=== PATIENT | female | born 1970 | race Caucasian/White ===

== ENCOUNTER 2024-10-09 20:36 | Emergency (ER) | payer BC, SELFPAY ==
[2024-10-09 20:39] VITALS: BP 133/82; PULSE 93; RESP 17; TEMP 37.3; O2SAT 100
[2024-10-09 20:45] VITALS: BP 133/82; PULSE 93; RESP 17; TEMP 37.3; O2SAT 100
--- NOTE | 2024-10-09 21:00 | ED.GENADUL_ITS ---
Discharge Plan Disposition Patient Disposition: Home Condition: Stable Discharge Details Clinical Impression: Cellulitis ED Provider: Emily Burgess Home Meds and New Rx's Prescriptions: New cephalexin 500 mg capsule 500 mg PO QID 7 Days Qty: 28 0RF Discharge Instructions Instructions: Cellulitis (Skin Infection), Adult ED Additional Instructions: Take antibiotics as prescribed. If you have increasing redness, pain, fevers please return for reevaluation. Call your surgeon to discuss symptoms and findings today. Discharge Data Discharge Physician: Emily Burgess [facility] General Date/Time Provider Initiated Documentation: 10/09/24 20:40 . HPI Narrative: 54-year-old female presents for evaluation of pain and swelling to right axilla. She had surgery last week to remove breast tissue from her axilla. She had been doing yard work today. This evening she noticed some pain and swelling to her right axilla. She has some nausea and chills. There is no drainage from the area. Surgical incision is intact. No history of skin infections or MRSA. She is not on any antibiotics. No nausea or vomiting. Related Data Home Medications ?Medication ?Instructions ?Recorded ?Confirmed cephalexin 500 mg capsule 500 mg PO QID 7 days #28 cap s 10/09/24 Previous Rx's ?Medication ?Instructions ?Recorded cephalexin 500 mg capsule 500 mg PO QID 7 days #28 cap s 10/09/24 Allergies Allergy/AdvReac Type Severity Reaction Status Date / Time No Known Allergies Allergy Verified 10/09/24 20:44 General Stated Complaint: Cellulitis DERECK: 3 Review of Systems Narrative: Remainder of review of systems otherwise negative except for as noted in the HPI x 10. Exam Narrative Exam Narrative: General: non-toxic, no respiratory distress, comfortable HEENT: normocephalic, atraumatic, lids and lashes normal, PERRL, EOMI, anicteric sclera, no conjunctival injection, moist oral mucosa Card: regular rate and rhythm, S1S2, no murmurs, rubs, or gallops Lungs: good air entry, clear to auscultation bilaterally. no wheezes, rales, rho nchi, or retractions Abd: soft, non-tender, non-distended, normal bowel sounds, no rebound or guarding, no peritoneal signs Musculoskeletal: full range of motion of arms and legs, no tenderness to pal pation. no clubbing, cyanosis, or edema Neurologic: appropriate for age, strength normal Psych: alert and oriented Skin: Surgical incision to right axilla clean dry and intact, significant erythema, warmth, swelling just below surgical incision in right axilla, otherwise no petechiae, no lesions, warm and dry Course Vital Signs Vital signs: Vital Signs Temperature 37.3 C 10/09/24 20:39 Pulse 93 H 10/09/24 20:39 Respiratory Rate 17 10/09/24 20:39 Blood Pressure 133/82 10/09/24 20:39 Pulse Oximetry 100 10/09/24 20:39 Temperature 37.3 C 10/09/24 20:45 Temperature Source Oral 10/09/24 20:45 Pulse 93 H 10/09/24 20:45 Respiratory Rate 17 10/09/24 20:45 Blood Pressure 133/82 10/09/24 20:45 Blood Pressure Position Sitting 10/09/24 20:45 Pulse Oximetry 100 10/09/24 20:45 Oxygen Delivery Method Room Air 10/09/24 20:45 Oxygen Flow Rate 0 10/09/24 20:45 Pain Level 6 10/09/24 20:45 Lab/Test Results Lab/Test Results: 10/09/24 20:52 Blood Blood Culture - Pending 10/09/24 20:52 Blood Blood Culture - Pending Medical Decision Making 54-year-old female presents for evaluation of pain and swelling in right axilla just below her recent surgical site. There is no fevers. No drainage. Will check laboratory studies including blood cultures and lactate. Will start on IV fluids as well as IV antibiotics. Will CT to evaluate for abscess versus seroma. Laboratory studies are unremarkable. No elevated white count. Normal lactic acid. Blood cultures are pending. Patient was given dose of IV Zosyn. On reassessment she is feeling somewhat improved. CT was obtained and shows bilateral seromas. The right is slightly bigger than the left. The discomfort today may be due to the activity she did during the day however I do feel that it is reasonable to cover with antibiotics in case this is an early cellulitis. Patient is given a copy of her CT on disc. She will follow-up with her surgeon at the [facility]. We have discussed indications to return [facility] All Active Problems (Updated 10/09/24 @ 22:29 by Emily Burgess MD) Cellulitis (Acute) Social History Smoking/Tobacco Use Status: Never Smoking risk assessment performed?: Yes Alcohol Intake: current Alcohol Intake frequency: a few times a month Drug use: Never Substance use type: does not use Do you feel safe at home: Yes Do you feel safe in your relationship?: Yes
[2024-10-09 21:17] LABS: Lactate 0.9 mmol/L (<or=2.0)
[2024-10-09 21:18] LABS: Abs Immature Grans 0.02 10^3/uL (0.0-0.06); Absolute Basophil Count 0.02 10^3/uL (0.0-0.2); Absolute Eosinophil Count 0.12 10^3/uL (0.0-0.7); Absolute Lymphocyte Count 1.44 10^3/uL (1.2-3.4); Absolute Monocyte Count 0.69 10^3/uL (0.1-0.8); Absolute Neutrophil Count 7.78 10^3/uL (1.2-6.7); Basophils % 0.2 %; Eosinophils % 1.2 %; HCT 36.5 % (36.0-46.0); HGB 12.4 g/dL (11.2-15.7); Immature Grans % 0.2 %; Lymphocytes % 14.3 %; MCH 29.5 pg (27.0-33.0); MCV 87 fL (80-95); MPV 10.1 fL (8.0-11.0); Monocytes % 6.9 %; Neutrophils % 77.2 %; Platelet Count 192 10^3/uL (130-400); RBC 4.21 10^6/uL (3.93-5.22); RDW 11.9 % (11.7-14.6); WBC 10.07 10^3/uL (4.4-10.8)
[2024-10-09] MEDS: Ketorolac 30 MG/ML VIAL IVP (21:18)
[2024-10-09] MEDS: Normal Saline 1,000 ML 1000 ML IV (21:18)
[2024-10-09] MEDS: Ondansetron 4 MG/2 ML VIAL IVP (21:19)
[2024-10-09] MEDS: PIPERACILLIN/TAZO 4.5 GM in Normal Saline 100 ML IVPB (21:19)
[2024-10-09 21:35] LABS: ALT 31 U/L (14-59); AST 14 U/L (15-37); Albumin 3.9 g/dL (3.4-5.0); Alkaline Phosphatase 59 U/L (46-116); Anion Gap 6.9 mmol/L (3-11); BUN 13 mg/dL (7-18); Bilirubin, Total 0.4 mg/dL (0.2-1.0); CO2 29.1 mmol/L (21.0-32.0); CREATININE 0.9 mg/dL (0.55-1.02); Calcium 8.9 mg/dL (8.5-10.1); Chloride 104 mmol/L (98-107); Estimated GFR 76.92 (mL/min/1.73m2); Glucose 91 mg/dL (74-106); Potassium 3.7 mmol/L (3.5-5.1); Sodium 140 mmol/L (136-145); Total Protein 7.4 g/dL (6.4-8.2)
--- NOTE | 2024-10-09 21:57 | DI.CT_ITS ---
Exam(s) CT CHEST W EXAM: CT CHEST W CLINICAL HISTORY: eval right axilla swelling TECHNIQUE: Imaging Protocol: Axial computed tomography images with coronal and sagittal reformatted images were created and reviewed. Computer aided detection (CAD) was utilized. CONTRAST MATERIAL: Intravenous: Omnipaque 350Contrast volume:70 mL. COMPARISON: No exams were available for comparison FINDINGS: Tracheobronchial tree: Patent where visualized. No evidence of bronchiectasis. Pulmonary parenchyma: No consolidation or dominant measurable mass. No architectural distortion. Mediastinum and Olga: No dominant adenopathy or fluid collection. The esophagus is unremarkable. Thyroid gland: Unremarkable. Pleura: No effusion or pneumothorax. Heart: The heart is not dilated. No coronary artery calcifications are seen. No pericardial effusion. Aorta: Thoracic aorta non-dilated. Pulmonary arteries: Within the limits of the examination, no pulmonary emboli are identified. Upper abdomen: Unremarkable. Lymph nodes: Within normal limits. Bones: Within normal limits for the patient's age. Soft tissues: There is a fluid collection seen in the right axilla measuring 6.6 transverse by 6.1 AP by 6.6 craniocaudad cm. It is homogeneously hypodense. There is also a fluid collection in the left axilla measuring 6.5 transverse by 3.5 AP by 4.6 craniocaudad cm. It is also homogeneously hypodense. IMPRESSION: 1. Bilateral axillary fluid collections. Differential considerations include resolving hematomas or postoperative seromas. No wall enhancement is seen. Abscess is considered less likely but cannot be entirely excluded. 2. The preliminary [facility] report was reviewed. RADIATION DOSE DELIVERED: 148.64mGy.cm Total DLP DATA REPOSITORY: All CT scans at this facility are submitted to the National Radiology Data Registry (NRDR) Dose Index Registry (DIR) with the [employer] ([employer]). RADIATION OPTIMIZATION: All CT scans at this facility use at least one of these dose optimization techniques: automated exposure control; mA and/or kV adjustment per patient size (includes targeted exams where dose is matched to clinical indication); or iterative reconstruction.
[2024-10-09] MEDS: Normal Saline - Diluent 50 ML VIAL IJ (21:58)
[2024-10-09] MEDS: Omnipaque 350 MG/ML 100 ML BTL 70 ML IJ (21:59)
--- NOTE | 2024-10-09 22:18 | DI.[facility]_ITS ---
PROCEDURE INFORMATION: Exam: CT Chest With Contrast; Diagnostic Exam date and time: 10/09/2024 9:46 PM Age: 54 years old Clinical indication: Other: Eval right axilla swelling; Surgery to remove breast tissue (not cancer) 1 \T\ 1/2 weeks ago. TECHNIQUE: Imaging protocol: Diagnostic computed tomography of the chest with contrast. 3D rendering (Not supervised by radiologist): MIP and/or 3D reconstructed images were created by the technologist. Contrast material: OMNIPAQUE 350; Contrast volume: 70 ml; Contrast route: INTRAVENOUS (IV); COMPARISON: No relevant prior studies available. FINDINGS: Thyroid: Thyroid gland partially excluded from view but grossly unremarkable through its visualized portion. Lungs: No pulmonary consolidation. Pleural spaces: No pleural effusion or pneumothorax. Heart: Normal-sized heart. Lymph nodes: No pathologically enlarged mediastinal or hilar lymph nodes. Vasculature: No thoracic aortic aneurysm or dissection. Exam not tailored to evaluate the pulmonary arterial vasculature. Within the limits of the exam, no large central pulmonary embolism demonstrated in the pulmonary trunk or main pulmonary arteries. Bones/joints: Lower ribs partially excluded from view and incompletely evaluated. Otherwise, no acute fracture seen among the bones of the chest. Spinal degenerative change with endplate irregularities and anterior osteophytes at multiple levels. Soft tissues: 5.7 cm x 6.5 cm x 6.4 cm well-defined subcutaneous fluid collection in the right axilla with a density measurement of 14.8 Hounsfield units, images 12 of series 2 and 30 of series 4. Mild surrounding hazy subcutaneous fat stranding. 2.7 cm x 6.2 cm x 4.5 cm well-defined oblong subcutaneous fluid collection in the right axillary region with a density of 8.6 Hounsfield units. Mild surrounding hazy fat stranding. IMPRESSION: Well-defined subcutaneous fluid collections in the right and left axillary regions, larger on the right. Postop seromas are suspected primarily in the recent postsurgical period. There is no marginal enhancement to suggest formation of saul abscess; however, superimposed infection is not excluded by imaging. There is mild adjacent hazy fat stranding bilaterally, likely edema or contusion from the recent procedures. Clinical correlation is recommended. Dictated and Authenticated by: Regino Lopez MD. Orderin Aditya Diaz MD
== END 2024-10-09 23:11 | disposition home or self-care (01) ==
LOC: ER 22:36
PROVIDERS: Emergency Provider Emergency Medicine Emergency Medical Services
DX: L03.111 Cellulitis of right axilla (principal); Z98.890 Other specified postprocedural states
CPT/HCPCS: 80053; 87040; 99285; 71260; 83605; 85025; 99284; J1885; J2405; J2543; J3490